=== PATIENT | female | born 1980 | race Caucasian/White ===

== ENCOUNTER 2018-10-23 16:10 | Emergency (ER) | payer MEDICAID ==
[~2018-10-23] VITALS: Ht 160 cm; Wt 54.4 kg
[2018-10-23 16:25] VITALS: BP_SYST 111
[2018-10-23 17:47] LABS: BILIRUBIN,URINE NEGATIVE (NEGATIVE); BLOOD, URINE 2+ (NEGATIVE); CLARITY/URINE HAZY (CLEAR); COLOR,URINE YELLOW (YELLOW); GLUCOSE,URINE NEGATIVE (NEGATIVE); KETONES,URINE TRACE (NEGATIVE); LEUKOCYTE ESTERASE ,URINE NEGATIVE (NEGATIVE); NITRITE, URINE NEGATIVE (NEGATIVE); PROTEIN URINE NEGATIVE (NEGATIVE); UROBILINOGEN,URINE 0.2 (0.2-1.0)
[2018-10-23 17:56] LABS: BACTERIA,URINE MODERATE /HPF (None Seen); MUCUS,URINE None Seen /LPF (None Seen); RBC,URINE 0-3 /HPF (0-3); WBC,URINE 0-3 /HPF (0-3)
[2018-10-23 23:45] VITALS: BP_SYST 110
[2018-10-25 22:14] LABS: CHLAMYDIA TRACHOMATIS NAA Negative (Negative); NEISSERIA GONORRHOEAE NAA Negative (Negative)
== END 2018-10-23 23:45 | disposition home or self-care (01) ==
LOC: SED 16:10
DX: N76.0 Acute vaginitis (principal); B96.89 Other specified bacterial agents as the cause of diseases classified elsewhere
CPT/HCPCS: 81000-TC; 87086; 87210-TC; 87491; 87591; 99283

== ENCOUNTER 2023-05-22 14:42 | Emergency (ER) | payer MEDICAID ==
[~2023-05-22] VITALS: Ht 160 cm; Wt 65.8 kg
[2023-05-22 14:59] VITALS: BP_SYST 135; PULSE 98; RESP 18; TEMP 98; O2SAT 100
[2023-05-22 17:04] LABS: BILIRUBIN,URINE NEGATIVE (NEGATIVE); BLOOD, URINE 2+ (NEGATIVE); COLOR,URINE YELLOW (YELLOW); GLUCOSE,URINE NEGATIVE (NEGATIVE); KETONES,URINE TRACE (NEGATIVE); LEUKOCYTE ESTERASE ,URINE NEGATIVE (NEGATIVE); NITRITE, URINE NEGATIVE (NEGATIVE); PH,URINE 5.5 (5.0-8.0); PROTEIN URINE TRACE (NEGATIVE)
[2023-05-22 17:05] LABS: CLARITY/URINE SLIGHTLY CLOUDY (CLEAR)
[2023-05-22 17:28] LABS: BACTERIA,URINE FEW /HPF (None Seen); WBC,URINE NONE SEEN /HPF (0-3)
[2023-05-22] MEDS ORDERED: PHEN-726 PO (17:34)
[2023-05-22] MEDS ORDERED: NITR-85 PO (17:34)
[2023-05-22 17:40] VITALS: BP_SYST 132; PULSE 95; RESP 19; TEMP 98.2; O2SAT 99
== END 2023-05-22 17:40 | disposition home or self-care (01) ==
LOC: SED 14:42
DX: N39.0 Urinary tract infection, site not specified (principal); R10.2 Pelvic and perineal pain; R31.9 Hematuria, unspecified; Z79.899 Other long term (current) drug therapy
CPT/HCPCS: 81000; 87210-TC; 99283